=== PATIENT | male | born 1955 | race Caucasian/White ===

== ENCOUNTER 2017-08-08 16:23 | Inpatient (IN) | payer MEDICAID ==
[~2017-08-08] VITALS: Ht 175.3 cm; Wt 97.0 kg
[2017-08-08] MEDS ORDERED: ASPIRIN 81 MG TAB PO STA (16:38)
[2017-08-08] MEDS ORDERED: LISI10TA2 PO (16:58)
[2017-08-08] MEDS ORDERED: METO-319 PO (16:58)
--- NOTE | 2017-08-08 16:59 | ERD ---
ER Documentation Chief Complaint Chief Complaint "not feeling well", weakness/fatigue; CP non-provoked resolved s/p nitro HPI This is a 62-year-old male with a past medical history of hypertension, hyperlipidemia, paroxysmal atrial fibrillation on metoprolol who is presenting with anxiety, lightheadedness, heart palpitations, intermittent left-sided chest pains radiating into the left arm and carotids, nausea with nonbilious nonbloody vomiting that began last night. It is nonexertional. It does not radiate to the back. The patient's symptoms persisted this morning and into the afternoon, so he called an ambulance. The patient was tachycardic with an irregular irregular rhythm. He endorsed chest pain to the paramedics, and he was given 162 mg of aspirin with a nitro spray that resolved his chest pain. The patient still feels mildly nauseated, but he does not feel like he is about to vomit. He also still feels the heart palpitations. Note, the patient reportedly ran out of his metoprolol 2-3 days ago and has not been taking it since then. The patient denies feeling sick recently. The patient denies fever or chills. The patient has had no headache or vision changes. The patient does not endorse back pain. The patient has had no shortness of breath or trouble breathing. He denies a cough. The patient denies abdominal pain or changes to bowel movements or urination. The patient has had no focal deficits. The patient has had no weakness or numbness or tingling to the face or extremities. ROS All systems reviewed and are negative except as per history of present illness. Medications Home Meds Reported Medications Lisinopril* (Lisinopril*) 10 Mg Tablet, 10 MG PO DAILY, #30 TAB 08/08/17 Metoprolol Succinate* (Toprol XL*) 50 Mg Tab.er.24h, 50 MG PO DAILY, #30 TAB 08/08/17 Allergies Allergies: Coded Allergies: No Known Allergy (Unverified , 08/08/17) PMhx/Soc History of Surgery: No Anesthesia Reaction: No Hx Neurological Disorder: No Hx Respiratory Disorders: No Hx Cardiac Disorders: Yes (HTN, A-FIB) Hx Psychiatric Problems: No Hx Miscellaneous Medical Probl: No Hx Alcohol Use: No Hx Substance Use: No Hx Tobacco Use: No Smoking Status: Former smoker FmHx Family History: No coronary disease, No diabetes Physical Exam Vitals Vital Signs Date Time Temp Pulse Resp B/P Pulse Ox O2 Delivery O2 Flow Rate FiO2 08/08/17 18:00 92 20 128/74 99 Nasal Cannula 2.0 08/08/17 17:45 97 20 126/87 99 Nasal Cannula 2.0 08/08/17 17:30 91 20 131/84 99 Nasal Cannula 2.0 08/08/17 17:15 95 20 119/90 99 Nasal Cannula 2.0 08/08/17 17:00 116 20 133/93 99 Nasal Cannula 2.0 08/08/17 16:30 97.9 112 20 144/91 98 08/08/17 16:23 Nasal Cannula 2 Physical Exam Const: No apparent distress, well-developed, well-nourished Head: Atraumatic Eyes: Normal Conjunctiva. Extraocular movements intact. ENT: Normal External Ears, Nose and Mouth. Neck: Full range of motion. No meningismus. Resp: Clear to auscultation bilaterally Cardio: Tachycardia, irregularly irregular rhythm, no murmurs Abd: Soft, non tender, non distended. Normal bowel sounds Skin: No petechiae or rashes Back: No midline or flank tenderness Ext: No cyanosis, or edema Neur: Awake and alert, oriented 4. Cranial nerves intact. No facial droop. Normal strength and sensation in all extremities. Coordination with finger to nose normal. Psych: Normal Mood and Affect Result Diagram: 08/08/17 1659 08/08/17 1659 Results 24 hrs Laboratory Tests Test 08/08/17 16:59 White Blood Count 9.110^3/ul Red Blood Count 4.5810^6/ul Hemoglobin 13.7g/dl Hematocrit 41.1% Mean Corpuscular Volume 89.7fl Mean Corpuscular Hemoglobin 29.9pg Mean Corpuscular Hemoglobin Concent 33.3g/dl Red Cell Distribution Width 13.3% Platelet Count 01615^3/UL Mean Platelet Volume 11.1fl Neutrophils % 76.0% Lymphocytes % 16.2% Monocytes % 6.6% Eosinophils % 0.6% Basophils % 0.3% Nucleated Red Blood Cells % 0.0/100WBC Neutrophils # 6.910^3/ul Lymphocytes # 1.510^3/ul Monocytes # 0.610^3/ul Eosinophils # 0.110^3/ul Basophils # 0.010^3/ul Nucleated Red Blood Cells # 0.010^3/ul Prothrombin Time 12.9Sec Prothrombin Time Ratio 1.0 INR International Normalized Ratio 0.97 Sodium Level 143mmol/L Potassium Level 4.2mmol/L Chloride Level 103mmol/L Carbon Dioxide Level 28mmol/L Anion Gap 16 Blood Urea Nitrogen 20mg/dl Creatinine 1.30mg/dl Glucose Level 131mg/dl Calcium Level 9.2mg/dl Total Bilirubin 0.9mg/dl Direct Bilirubin 0.00mg/dl Indirect Bilirubin 0.9mg/dl Aspartate Amino Transf (AST/SGOT) 20IU/L Alanine Aminotransferase (ALT/SGPT) 18IU/L Alkaline Phosphatase 79IU/L Troponin I < 0.012ng/ml Total Protein 7.4g/dl Albumin 4.3g/dl Globulin 3.10g/dl Albumin/Globulin Ratio 1.38 Current Medications Medications (Trade) Dose Ordered Sig/Mahnaz Route PRN Reason Start Time Stop Time Status Last Admin Dose Admin Aspirin (Aspirin) 162 mg ONCE STAT PO 08/08/17 16:38 08/08/17 16:40 DC 08/08/17 17:02 Metoprolol Tartrate (Lopressor) 5 mg Q5M IV 08/08/17 17:00 08/08/17 17:11 DC 08/08/17 17:03 Procedures/MDM MDM The patient's presentation warrants further investigation. The patient presents with symptoms consistent with atrial fibrillation with rapid ventricular response. The patient also endorses chest pain that will require a chest pain rule out. A cardiac workup will be completed. The patient has no focal deficits, and I do not suspect cerebral ischemia or stroke at this time. The patient does not have symptoms consistent with aortic dissection. He does not have symptoms consistent with a pulmonary embolism. The patient does not endorse an infectious etiology. LABS The patient's blood work was obtained and reviewed. The patient's CBC shows no leukocytosis or left shift. The patient is afebrile and does not appear systemically ill. I do not suspect a systemic infection. The patient has a mild normocytic anemic today, which does not require emergent treatment. The patient's platelet count is unremarkable. The patient's CMP shows no signs of emergent metabolic or electrolyte abnormality. His renal function is decreased, but it is unclear if this is acute or chronic. The patient's troponin is negative. The patient has no previous labs in our system. EKG EKG read by me: Rate/Rhythm: Tachycardic, irregularly irregular rhythm at a rate of 113 Intervals: No P waves, QRS and QTc are unremarkable [place]: Normal Impression: Atrial fibrillation with rapid ventricular response, nonspecific repolarization abnormality in the lateral leads but no signs of acute STEMI IMAGING Chest X-ray 1V Interpreted by me: Soft Tissue: No acute abnormalities. No pneumoperitoneum. Bones: No acute abnormalities Lungs: Vascular markings to the periphery, no signs of pneumothorax. Clear costodiaphragmatic angles, no pleural effusions. No increased vascular markings , no pulmonary edema. Mediastinum/Cardiac Silhouette: Unremarkable cardiomediastinal silhouette TREATMENT/DISPOSITION The patient was given 5 mg of metoprolol IV with improvement to the 80s. I initially chose this over Cardizem, because this is the patient's home medication. The patient is not on any anticoagulation, which is concerning. This may be worked up in the hospital, but is likely related to medication noncompliance. The patient has also had chest pains and a history that could be consistent with cardiac ischemia. I do have moderate suspicion. At this time, I paged the patient's heart score at 4 for age, risk factors, moderate suspicion suspicion and nonspecific repolarization abnormalities in the lateral leads. The patient does not endorse having had a stress test in the past. At this time, I feel that the patient requires admission for further evaluation and management. The patient will be admitted to Panel in accordance with the patient's insurance. The patient was accepted by Dr. Sheikh at 18:19 on July 08, 2017 to telemetry. Departure Diagnosis: Primary Impression: Atrial fibrillation with rapid ventricular response Additional Impression: Chest pain Chest pain type: unspecified Qualified Code: R07.9 - Chest pain, unspecified type Condition: Serious MARITZA JAMISON MD Aug 08, 2017 16:59
[2017-08-08] MEDS: METOPROLOL 5 MG INJ IV SCH ×3 (17:03→17:10)
--- NOTE | 2017-08-08 18:22 | RADRPT ---
PROCEDURE: XR Chest. CLINICAL INDICATION: Chest pain. TECHNIQUE: AP Portable chest. COMPARISON: No pertinent prior examinations were submitted for comparison. FINDINGS: The cardiomediastinal silhouette is normal. The aorta is tortuous. No focal consolidation, pleural e ffusion or pneumothorax is seen. The osseous structures are intact. IMPRESSION: No radiographic evidence of acute cardiopulmonary disease. Physician Mary Date Time Electronically viewed and signed by Genoveva Carney Physician on 08/08/2017 18:21 BEVERLY/
[2017-08-08] MEDS ORDERED: ONDANSETRON 4 MG INJ IV PRN ×2 (18:30→19:30)
[2017-08-08] MEDS ORDERED: ACETAMINOPHEN 325 MG TAB PO PRN ×2 (18:30→19:30)
[2017-08-08] MEDS ORDERED: morphine 2 MG INJ IV PRN (19:30)
[2017-08-08] MEDS ORDERED: NACL 0.9% 3 ML SYG IV SCH (19:30)
[2017-08-08] MEDS ORDERED: DOCUSATE SODIUM 100 MG CAP PO PRN (19:30)
[2017-08-08] MEDS ORDERED: MAGNESIUM HYDROXIDE 30ML CUP PO PRN (19:30)
[2017-08-08] MEDS ORDERED: NITROGLYCERIN (SL) 0.4 MG TAB SL PRN (19:30)
[2017-08-08 20:12] VITALS: PULSE 107
[2017-08-08 20:14] VITALS: Ht 175.3 cm; Wt 97.0 kg
[2017-08-08 20:18] VITALS: BP 144/86; RESP 20
[2017-08-08] MEDS: SOD CHLORIDE 0.9% 1,000 ML IV SCH (21:04)
[2017-08-08] MEDS: FAMOTIDINE 20 MG TAB PO SCH (21:05)
[2017-08-08] MEDS: ENOXAPARIN 100 MG/ML SYG SC SCH (21:06)
[2017-08-09] VITALS (13 sets, daily range): BP systolic 125–154; BP diastolic 74–95; PULSE 66–153; RESP 16–20
--- NOTE | 2017-08-09 05:52 | HP ---
Date/Time of Note Date/Time of Note DATE: 08/09/17 TIME: 05:50 Assessment/Plan VTE Prophylaxis VTE Prophylaxis Intervention: LMWH Lines/Catheters IV [facility] Saline Lock Assessment/Plan Chief Complaint/Hosp Course This is a 62, being admitted to the telemetry floor for: #1 paroxysmal atrial fibrillation: Likely secondary to patient's noncompliance with medications. The current time patient is rate controlled after receiving Lopressor in the ED. Will continue patient's home metoprolol medication. Patient is also will be put on Lovenox twice daily injections for anticoagulant agent. Cardiology will be consulted in the a.m. #2 hypertension: Continue LOURDES inhibitor #3 hyperlipidemia: Patient currently not on any medication. Will check a lipid panel. #4 DVT GI prophylaxis: Lovenox,No GI prophylaxis indicated. Further treatment strategy will be implemented as per the clinical course Problems: HPI/ROS Admit Date/Time Admit Date/Time Aug 08, 2017 at 18:27 Hx of Present Illness cc: anxiety, lightheadedness This is a 62-year-old male with a past medical history of hypertension, hyperlipidemia, paroxysmal atrial fibrillation on metoprolol who is presenting with anxiety, lightheadedness, heart palpitations, intermittent left-sided chest pains radiating into the left arm and carotids, nausea with nonbilious nonbloody vomiting that began last night. It is nonexertional. It does not radiate to the back. The patient's symptoms persisted this morning and into the afternoon, so he called an ambulance. The patient was tachycardic with an irregular irregular rhythm. He endorsed chest pain to the paramedics, and he was given 162 mg of aspirin with a nitro spray that resolved his chest pain. The patient still feels mildly nauseated, but he does not feel like he is about to vomit. He also still feels the heart palpitations. Note, the patient reportedly ran out of his metoprolol 2-3 days ago and has not been taking it since then. The patient denies feeling sick recently. The patient denies fever or chills. The patient has had no headache or vision changes. The patient does not endorse back pain. The patient has had no shortness of breath or trouble breathing. He denies a cough. The patient denies abdominal pain or changes to bowel movements or urination. The patient has had no focal deficits. The patient has had no weakness or numbness or tingling to the face or extremities. allergies NKDA Medications: See BANDAR CASILLAS Const: As per HPI Eyes : No pain discharge or redness or change in visual acuity ENT: No pain, sore throat, congestion, congestion, dysphagia or discharge Respiratory: As per HPI Cardiovascular: As per HPI GI : no change in appetite, abdominal pain, nausea, vomiting, diarrhea, constipation, or change in the color his stool Genitourinary: No dysuria, hematuria, flank pain , discharge or CVA tenderness Musculoskeletal: No joint pain, back pain, neck pain, restricted range of motion in neck or joints Skin: No rash, bruising or hives Neuro: No headache, dizziness, syncope, seizure, focal weakness Endocrine: No polyuria, polydipsia, temperature intolerance Psych: No hallucination, depression, anxiety or suicidal ideation PMH/Family/Social Past Medical History Hypertension, paroxysmal atrial fibrillation, hyperlipidemia Past Surgical History Exploratory laparotomy Family History Significant Family History: no pertinent family hx Social History Alcohol Use: none Smoking Status: Never smoker Drug Use: none Exam/Review of Systems Vital Signs Vitals Vital Signs Date Time Temp Pulse Resp B/P Pulse Ox O2 Delivery O2 Flow Rate FiO2 08/09/17 05:04 97.6 84 20 133/83 98 08/08/17 19:15 Nasal Cannula 2.0 Exam Exam General: Patient is well-developed well-nourished The patient is alert oriented -3 lying comfortably in bed. HEENT: Atraumatic, normocephalic. The pupils are equal, round and reactive. Extraocular motor are intact Neck: Supple with full range of motion. No rigidity or meningismus Chest: Nontender Lungs: Clear to auscultation bilaterally no crackles rales or wheezing Heart: Irregularly irregular rhythm, rate controlled Abdomen: Soft , nontender, nondistended , bowel sounds are present. No guarding no rebound tenderness , No masses or organomegaly. No costovertebral temporal angle mass Extremities: Normal to inspection, no edema no cyanosis Neurologic: Normal mental status, speech normal, cranial nerves II through XII are intact, motor and sensory are intact, no focal weakness Additional Comments EKG read by me: Rate/Rhythm: Tachycardic, irregularly irregular rhythm at a rate of 113 Intervals: No P waves, QRS and QTc are unremarkable [place]: Normal Impression: Atrial fibrillation with rapid ventricular response, nonspecific repolarization abnormality in the lateral leads but no signs of acute STEMI As per ED physician documentation PROCEDURE: XR Chest. CLINICAL INDICATION: Chest pain. TECHNIQUE: AP Portable chest. COMPARISON: No pertinent prior examinations were submitted for comparison. FINDINGS: The cardiomediastinal silhouette is normal. The aorta is tortuous. No focal consolidation, pleural effusion or pneumothorax is seen. The osseous structures are intact. IMPRESSION: No radiographic evidence of acute cardiopulmonary disease. Genoveva Carney Physician Date Time Electronically viewed and signed by Genoveva Carney Physician on 08/08/2017 18: 21 CS/ CC: MARITZA JAMISON MD Labs Result Diagram: 08/08/17 1659 08/08/17 165 Medications Medications Current Medications Lisinopril (Zestril) 10 mg DAILY PO ; Start 08/09/17 at 09:00 Metoprolol Succinate 50 mg 50 mg DAILY PO ; Start 08/09/17 at 09:00 Sodium Chloride (NS) 1,000 ml @ 100 mls/hr Q10H IV Last administered on t 21:04; Admin Dose 100 MLS/HR; Start 08/08/17 at 19:25; Stop 08/09/17 at 19: 24 Ondansetron HCl (Zofran Inj) 4 mg Q6H PRN IV NAUSEA AND/OR VOMITING; Start 08/08/17 at 19:30 Nitroglycerin (Nitroglycerin (Sl Tab) 0.4 Mg) 1 tab Q5M PRN SL CHEST PAIN; Start 08/08/17 at 19:30 Acetaminophen (Tylenol Tab) 650 mg Q6H PRN PO PAIN LEVEL 1-3 OR FEVER; Start 08/08/17 at 19:30 Morphine Sulfate (morphine) 2 mg Q4H PRN IV PAIN LEVEL 7-10; Start 08/08/17 at 19:30 Docusate Sodium (Colace) 100 mg Q12H PRN PO CONSTIPATION; Start 08/08/17 at 19: 30 Magnesium Hydroxide (Milk Of Mag) 30 ml DAILY PRN PO CONSTIPATION; Start at 19:30 Famotidine (Pepcid) 20 mg Q12 PO Last administered on 08/08/17 21:05; Admin Dose 20 MG; Start 08/08/17 at 21:00 Metoprolol Tartrate (Lopressor) 5 mg Q5M PRN IV DESIRED VENTRICULAR RATE; Start 08/08/17 at 19:30 Enoxaparin Sodium (Lovenox) 95 mg Q12 SC Last administered on 08/08/17 21:06; Admin Dose 95 MG; Start 08/08/17 at 21:00 Influenza Virus Vaccine (Fluzone) 0.5 ml ONCE ONCE IM* ; Start 08/10/17 at 09:00 ; Stop 08/10/17 at 09:01 MELISSA TEE Aug 09, 2017 05:51
[2017-08-09] MEDS: METOPROLOL 5 MG INJ IV PRN (06:10)
[2017-08-09] MEDS: SOD CHLORIDE 0.9% 1,000 ML IV SCH ×2 (06:27→15:25)
[2017-08-09] MEDS ORDERED: METOPROLOL (XL) 50 MG TAB PO SCH (09:00)
[2017-08-09] MEDS: FAMOTIDINE 20 MG TAB PO SCH ×2 (09:37→21:34)
[2017-08-09] MEDS: LISINOPRIL 10 MG TAB PO SCH (09:40)
[2017-08-09] MEDS: ENOXAPARIN 100 MG/ML SYG SC SCH ×2 (09:43→21:35)
[2017-08-09] MEDS: AMLODIPINE 10 MG TAB PO SCH (13:17)
[2017-08-09] MEDS: DIGOXIN 0.125 MG TAB PO SCH (13:19)
--- NOTE | 2017-08-09 13:31 | PN ---
Date/Time of Note Date/Time of Note DATE: 08/09/17 TIME: 13:31 Assessment/Plan VTE Prophylaxis VTE Prophylaxis Intervention: LMWH Lines/Catheters IV Catheter Type (from Nrsg): Saline Lock Assessment/Plan Assessment/Plan 1. Paroxysmal atrial fibrillation - most likely secondary to medication noncompliance as he has been out of his Metoprolol for 2 days - Cardiology on board and recommendations appreciated - ECHO ordered to rule out structural disease - Started on digoxin, BB held - Lovenox BID and transition to NOAC 2. HTN - continue on LOURDES i - stable and will continue to monitor 3. hyperTG - advised about improving diet 4. Chest pain, ACS ruled out - EKG showed afib - Serial trops negative 5. Disposition - Continue monitoring in telemetry - ECHO and carotid duplex pending - Once cleared by Cardiology can be d/c home Subjective 24 Hr Interval Summary Free Text/Dictation Patient states he is feeling better since admission and no longer experiencing chest pain or palpitations. States ran out of medications. Also not on anticoagulation and explained importance of starting which he understood. No acute overnight events. Exam/Review of Systems Vital Signs Vitals Vital Signs Date Time Temp Pulse Resp B/P Pulse Ox O2 Delivery O2 Flow Rate FiO2 08/09/17 12:22 98.2 107 20 140/74 97 08/08/17 19:15 Nasal Cannula 2.0 Intake and Output 08/08/17 08/08/17 08/09/17 15:00 23:00 07:00 Intake Total 200 ml Balance 200 ml Exam General: NAD, awake and alert Neck: Supple with full range of motion. No rigidity or meningismus Chest: Nontender Lungs: Clear to auscultation bilaterally no crackles rales or wheezing Heart: Irregularly irregular rhythm, rate controlled Abdomen: Soft , nontender, nondistended , bowel sounds are present. No guarding no rebound tenderness , No masses or organomegaly Extremities: Normal to inspection, no edema no cyanosis Neurologic: Normal mental status, speech normal, cranial nerves II through XII are intact, motor and sensory are intact, no focal weakness Results Result Diagram: 08/09/17 0659 08/09/17 0659 Results 24 hrs Laboratory Tests Test 08/08/17 16:59 08/08/17 17:00 08/08/17 23:07 08/09/17 06:59 White Blood Count 9.1 8.6 Red Blood Count 4.58 L 4.23 L Hemoglobin 13.7 L 12.7 L Hematocrit 41.1 L 38.7 L Mean Corpuscular Volume 89.7 91.5 Mean Corpuscular Hemoglobin 29.9 30.0 Mean Corpuscular Hemoglobin Concent 33.3 32.8 Red Cell Distribution Width 13.3 13.5 Platelet Count 248 238 Mean Platelet Volume 11.1 H 11.3 H Neutrophils % 76.0 66.7 Lymphocytes % 16.2 23.9 Monocytes % 6.6 7.6 Eosinophils % 0.6 1.1 Basophils % 0.3 0.5 Nucleated Red Blood Cells % 0.0 0.0 Neutrophils # 6.9 5.7 Lymphocytes # 1.5 2.1 Monocytes # 0.6 0.7 Eosinophils # 0.1 0.1 Basophils # 0.0 0.0 Nucleated Red Blood Cells # 0.0 0.0 Prothrombin Time 12.9 Prothrombin Time Ratio 1.0 INR International Normalized Ratio 0.97 Sodium Level 143 143 Potassium Level 4.2 4.2 Chloride Level 103 107 Carbon Dioxide Level 28 28 Anion Gap 16 12 Blood Urea Nitrogen 20 20 Creatinine 1.30 H 1.02 Glucose Level 131 99 Calcium Level 9.2 8.8 Total Bilirubin 0.9 Direct Bilirubin 0.00 Indirect Bilirubin 0.9 Aspartate Amino Transf (AST/SGOT) 20 Alanine Aminotransferase (ALT/SGPT) 18 Alkaline Phosphatase 79 Troponin I < 0.012 < 0.012 < 0.012 Total Protein 7.4 Albumin 4.3 Globulin 3.10 Albumin/Globulin Ratio 1.38 Hemoglobin A1c 5.9 Triglycerides Level 233 H Cholesterol Level 168 LDL Cholesterol, Calculated 84 HDL Cholesterol 37 Cholesterol/HDL Ratio 4.5 Thyroid Stimulating Hormone (TSH) 2.310 Creatine Kinase 146 119 Creatine Kinase Index 1.4 1.2 Creatinine Kinase MB (Mass) 2.06 1.38 Magnesium Level 1.9 Medications Medications Current Medications Lisinopril 10 mg 10 mg DAILY PO Last administered on 08/09/17 09:40; Admin Dose 10 MG; Start 08/09/17 at 09:00 Sodium Chloride (NS) 1,000 ml @ 100 mls/hr Q10H IV Last administered on 06:27; Admin Dose 100 MLS/HR; Start 08/08/17 at 19:25; Stop 08/09/17 at 19: 24 Ondansetron HCl (Zofran Inj) 4 mg Q6H PRN IV NAUSEA AND/OR VOMITING; Start 08/08/17 at 19:30 Nitroglycerin (Nitroglycerin (Sl Tab) 0.4 Mg) 1 tab Q5M PRN SL CHEST PAIN; Start 08/08/17 at 19:30 Acetaminophen (Tylenol Tab) 650 mg Q6H PRN PO PAIN LEVEL 1-3 OR FEVER; Start 08/08/17 at 19:30 Morphine Sulfate (morphine) 2 mg Q4H PRN IV PAIN LEVEL 7-10; Start 08/08/17 at 19:30 Docusate Sodium (Colace) 100 mg Q12H PRN PO CONSTIPATION; Start 08/08/17 at 19: 30 Magnesium Hydroxide (Milk Of Mag) 30 ml DAILY PRN PO CONSTIPATION; Start at 19:30 Famotidine (Pepcid) 20 mg Q12 PO Last administered on 08/09/17 09:37; Admin Dose 20 MG; Start 08/08/17 at 21:00 Metoprolol Tartrate (Lopressor) 5 mg Q5M PRN IV DESIRED VENTRICULAR RATE Last administered on 08/09/17 06:10; Admin Dose 5 MG; Start 08/08/17 at 19:30 Enoxaparin Sodium (Lovenox) 95 mg Q12 SC Last administered on 08/09/17 09:43; Admin Dose 95 MG; Start 08/08/17 at 21:00 Influenza Virus Vaccine (Fluzone) 0.5 ml ONCE ONCE IM* ; Start 08/10/17 at 09:00 ; Stop 08/10/17 at 09:01 Digoxin (Digoxin) 0.125 mg DAILY@13 PO Last administered on 08/09/17 13:19; Admin Dose 0.125 MG; Start 08/09/17 at 13:00 Amlodipine Besylate (Norvasc) 10 mg DAILY PO Last administered on 08/09/17 13: 17; Admin Dose 10 MG; Start 08/09/17 at 11:30 PRISCILLA VILLEGAS MD Aug 09, 2017 13:31
--- NOTE | 2017-08-09 14:22 | RADRPT ---
Echocardiogram Report Patient Name: LILY JAY Gender: Male Date: 1955 Study Date: 09-Aug-2017 Anatomy Professor: LEELEE Location: [id number] Ref. Physician: PRISCILLA VILLEGAS Quality: Technically Difficult Study Procedures: Transthoracic echocardiogram with complete 2D, M-Mode, and doppler examination. Indications: Atrial Fibrillation. Chest Pain. 2D/M Mode Doppler Measurement Value Normal Ranges Measurement Value Normal Ranges AoR Diam MM 3.4 cm NONA Vmax 2.6 cm2 ACS MM 2.0 cm NONA VTI 2.6 cm2 LA/Ao MM 1.0 AV Peak [place] 1.3 m/sec LA Dimen MM 4.2 cm AV Peak PG 6.6 mmHg LVIDs 2D 4.3 2.1 - 4.1 cm LVOT Peak [place] 1.1 m/sec LVPWd 2D 1.1 0.6 - 1.1 cm LVOT Peak PG 4.4 mmHg IVSd 2D 1.1 0.6 - 1.1 cm MV E Peak [place] 1.0 m/sec EDV 2D 137.8 cm3 MV A Peak [place] 0.3 m/sec ESV 2D 79.8 cm3 MV E/A 3.3 EF 2D 40.0 50.0 - 65.0 % MV Decel Time 135 msec LVOT Diam 2.0 cm MV Decel [place] 8 MV E/A 3.3 TR Peak [place] 2.5 m/sec TR Peak PG 24.8 mmHg RVSP 28.0 mmHg RA Pressure 3.0 Findings Left Ventricle: Normal left ventricular cavity size. Normal left ventricular wall thickness. Moderate left ventricular systolic dysfunction. Ejection fraction is visually estimated at 40 %. Abnormal Diastolic Function. Right Ventricle: Normal right ventricular size. Normal right ventricular systolic function. Left Atrium: There is mild enlargement of left atrium. Right Atrium: The right atrium is normal in size. Mitral Valve: Normal appearance of the mitral valve. Mild mitral annular calcification. Trace mitral regurgitation. Aortic Valve: Normal appearance of the aortic valve. No significant aortic stenosis with trivial insufficiency. Tricuspid Valve: Normal appearance of the tricuspid valve. Normal right ventricular systolic pressure. Estimated peak PA systolic pressure 28 mmHg. There is mild tricuspid regurgitation. Pulmonic Valve: Pulmonic valve not well visualized. Pericardium: Normal pericardium with no significant pericardial effusion. Aorta: Normal aortic root. IVC: Normal size and normal respiratory collapse consistent with normal right atrial pressure. Conclusions 1.Normal left ventricular cavity size. Normal left ventricular wall thickness. Moderate left ventricular systolic dysfunction. Ejection fraction is visually estimated at 40 %. Abnormal Diastolic Function. 2.Normal right ventricular size. Normal right ventricular systolic function. 3.Normal appearance of the mitral valve. Mild mitral annular calcification. Trace mitral regurgitation. 4.Normal appearance of the aortic valve. No significant aortic stenosis with trivial insufficiency. 5.Normal appearance of the tricuspid valve. Normal right ventricular systolic pressure. Estimated peak PA systolic pressure 28 mmHg. There is mild tricuspid regurgitation. 6.Normal pericardium with no significant pericardial effusion. Electronically Signed By: Humphrey Odonnell 09-Aug-2017 14:21:23 -0800 Patient Name: LILY JAY Study Date: 09-Aug-2017 [id number]
--- NOTE | 2017-08-09 14:22 | RADRPT ---
Echocardiogram Report Patient Name: LILY JAY Gender: Male Date: 1955 Study Date: 09-Aug-2017 Analyst Market Intelligence: LEELEE Location: 5539 Ref. Physician: PRISCILLA VILLEGAS Quality: Technically Difficult Study Procedures: Transthoracic echocardiogram with complete 2D, M-Mode, and doppler examination. Indications: Atrial Fibrillation. Chest Pain. 2D/M Mode Doppler Measurement Value Normal Ranges Measurement Value Normal Ranges AoR Diam MM 3.4 cm NONA Vmax 2.6 cm2 ACS MM 2.0 cm NONA VTI 2.6 cm2 LA/Ao MM 1.0 AV Peak [place] 1.3 m/sec LA Dimen MM 4.2 cm AV Peak PG 6.6 mmHg LVIDs 2D 4.3 2.1 - 4.1 cm LVOT Peak [place] 1.1 m/sec LVPWd 2D 1.1 0.6 - 1.1 cm LVOT Peak PG 4.4 mmHg IVSd 2D 1.1 0.6 - 1.1 cm MV E Peak [place] 1.0 m/sec EDV 2D 137.8 cm3 MV A Peak [place] 0.3 m/sec ESV 2D 79.8 cm3 MV E/A 3.3 EF 2D 40.0 50.0 - 65.0 % MV Decel Time 135 msec LVOT Diam 2.0 cm MV Decel [place] 8 MV E/A 3.3 TR Peak [place] 2.5 m/sec TR Peak PG 24.8 mmHg RVSP 28.0 mmHg RA Pressure 3.0 Findings Left Ventricle: Normal left ventricular cavity size. Normal left ventricular wall thickness. Moderate left ventricular systolic dysfunction. Ejection fraction is visually estimated at 40 %. Abnormal Diastolic Function. Right Ventricle: Normal right ventricular size. Normal right ventricular systolic function. Left Atrium: There is mild enlargement of left atrium. Right Atrium: The right atrium is normal in size. Mitral Valve: Normal appearance of the mitral valve. Mild mitral annular calcification. Trace mitral regurgitation. Aortic Valve: Normal appearance of the aortic valve. No significant aortic stenosis with trivial insufficiency. Tricuspid Valve: Normal appearance of the tricuspid valve. Normal right ventricular systolic pressure. Estimated peak PA systolic pressure 28 mmHg. There is mild tricuspid regurgitation. Pulmonic Valve: Pulmonic valve not well visualized. Pericardium: Normal pericardium with no significant pericardial effusion. Aorta: Normal aortic root. IVC: Normal size and normal respiratory collapse consistent with normal right atrial pressure. Conclusions 1.Normal left ventricular cavity size. Normal left ventricular wall thickness. Moderate left ventricular systolic dysfunction. Ejection fraction is visually estimated at 40 %. Abnormal Diastolic Function. 2.Normal right ventricular size. Normal right ventricular systolic function. 3.Normal appearance of the mitral valve. Mild mitral annular calcification. Trace mitral regurgitation. 4.Normal appearance of the aortic valve. No significant aortic stenosis with trivial insufficiency. 5.Normal appearance of the tricuspid valve. Normal right ventricular systolic pressure. Estimated peak PA systolic pressure 28 mmHg. There is mild tricuspid regurgitation. 6.Normal pericardium with no significant pericardial effusion. Electronically Signed By: Humphrey Odonnell 09-Aug-2017 14:21:23 -0800 Patient Name: LILY JAY Study Date: 09-Aug-2017 [id number]
--- NOTE | 2017-08-09 14:27 | CONS ---
DATE OF ADMISSION: 08/08/2017 DATE OF CONSULTATION: 08/09/2017 REASON FOR CONSULTATION: Dizziness. HISTORY OF PRESENT ILLNESS: The patient is a 62-year-old gentleman who complains of abdominal disco mfort associated with nausea and vomiting. He also complains of palpitations with dizziness. Denie s syncope. He also complains of intermittent and substernal chest pain radiating to the left arm. He does complain of headache with blurry vision. Denies fever, chills, or rigors. There is no prio r history of coronary artery disease or myocardial infarction. PAST MEDICAL HISTORY: Significant for: 1. Atrial fibrillation. 2. Dyslipidemia. 3. Hypertension. 4. Diabetes mellitus. SOCIAL HISTORY: No smoking, alcohol or recreational drug. ALLERGIES: NONE. CURRENT MEDICATIONS: Include: 1. Lisinopril. 2. Metoprolol. 3. Pepcid. 4. Lovenox. REVIEW OF SYSTEMS: Is unremarkable except that mentioned in the HPI. PHYSICAL EXAMINATION: VITAL SIGNS: Temperature is 98.1, heart rate of 60, blood pressure 154/95 mmHg, breathing at 20, sa turating 97%. GENERAL: Patient awake, alert, in no apparent distress. NECK: No JVD or carotid bruit. CARDIOVASCULAR: Irregularly irregular rhythm. No murmur, rub or gallop. LUNGS: Clear to auscultation. ABDOMEN: Soft. Bowel sounds are present. There is no organomegaly. EXTREMITIES: No pedal edema. Review of 12-lead EKG shows atrial fibrillation with rapid ventricular rate of 130 beats per minute, with normal QRS and normal QT intervals with nonspecific ST-T wave changes. Chest x-ray shows no congestion or infiltrates. LABORATORY DATA: WBC is 8.6, hemoglobin 4.8, hematocrit 12.7, platelets 238. Sodium 143, potassium 4.2, chloride 107, CO2 of 28, BUN 20, creatinine 1.02, magnesium 1.9. Triglycerides 233. Total ch olesterol 168, LDL 84, HDL 37. TSH 2.3. ASSESSMENT AND PLAN: A 62-year-old gentleman with: 1. Atypical chest pain. 2. Dizziness. 3. Atrial fibrillation with rapid ventricular rate. 4. Hypertension. 5. Dyslipidemia. 6. Diabetes mellitus. Review of 12-lead EKG shows atrial fibrillation with rapid ventricular rate, and clinically not in h eart failure. He has been ruled out for acute coronary syndrome with serial negative troponins. RECOMMENDATIONS: 1. Orthostatic x4. 2. Hold beta blockers. 3. Started on Digoxin. 4. Bilateral carotid Duplex. 5. Echocardiogram to assess for structural heart disease and to rule out for pulmonary hypertension and pericardial disease. 6. Encourage oral intake. 7. Continue GI and DVT prophylaxis. Dictated By: ANNIKA LOGAN MD SR/DALTON Conf#: [id number] DID#: [id number]
--- NOTE | 2017-08-09 16:13 | RADRPT ---
PROCEDURE: US carotid arteries. CLINICAL INDICATION: Dizziness. TECHNIQUE: Multiple sonographic images of the carotid arteries and vertebral arteries were obtaine d utilizing may scale, duplex, and color-flow imaging. The images were reviewed on a PACS workstati on. COMPARISON: No prior studies are available for comparison. FINDINGS: Evaluation of the right carotid bifurcation region reveals mild atherosclerotic disease. Evaluation of the left carotid bifurcation region reveals mild atherosclerotic disease. There is antegrade flow within the vertebral arteries bilaterally. RIGHT CAROTID MEASUREMENTS: Common Carotid Lbiotm46 (cm/sec) Internal Carotid Artery 63 (cm/sec) External Carotid Artery 54 (cm/sec) Vertebral Artery 47 (cm/sec) Internal Carotid/Common Carotid1.0 LEFT CAROTID MEASUREMENTS: Common Carotid Tavaxs41 (cm/sec) Internal Carotid Artery 64 (cm/sec) External Carotid Artery 59 (cm/sec) Vertebral Artery 45 (cm/sec) Internal Carotid/Common Carotid1.2 Validated velocity measurements with angiographic measurements. Velocity criteria are extrapolated f rom diameter data as defined by the Society of Radiologists in Ultrasound Consensus Conference. Radi ology 2003; 229;340-346. This study does indirectly reference the measurement of the distal ICA ally meter as the denominator for stenosis measurement. IMPRESSION: 1. Less than 50% stenosis bilaterally in the internal carotid arteries. 2. Normal antegrade flow in the vertebral arteries bilaterally. RPTAT: QQ SRU Consensus Conference Criteria for the Diagnosis of Carotid Artery Stenosis* Degree of Stenosis, % ICA PSV, cm/sec Plaque Estimate, % ICA/CCA PSV Ratio Normal <125 None <2.0 <50 <125 <50 <2.0 50 69 125-230 >50 2.0-4.0 >70 but less than near occlusion >230 >50 <4.0 Near occlusion High, low, or undetectable Visible Variable Total occlusion Undetectable Visible, no detectable lumen Not applicable *Cartoid artery stenosis: may-scale and Doppler US diagnosis. Society of Radiologists in Ultrasound Consensus Conference. Radiology 2003; 229: 340-346 .Russ Kenny MD, Date Time Electronically viewed and signed by .Russ Kenny MD, on 08/09/2017 16:13 .R/
[2017-08-10] VITALS (12 sets, daily range): BP systolic 120–169; BP diastolic 73–94; PULSE 74–151; RESP 16–20
[2017-08-10] MEDS: METOPROLOL 5 MG INJ IV PRN (01:03)
[2017-08-10] MEDS: ENOXAPARIN 100 MG/ML SYG SC SCH ×2 (08:31→21:00)
[2017-08-10] MEDS: LISINOPRIL 10 MG TAB PO SCH ×2 (09:00→13:56)
[2017-08-10] MEDS: FAMOTIDINE 20 MG TAB PO SCH ×3 (09:00→21:00)
[2017-08-10] MEDS ORDERED: INFLUENZA VIRUS VACCINE 0.5 ML (DISPENSING) IM* ONE (09:00)
[2017-08-10] MEDS: AMLODIPINE 10 MG TAB PO SCH ×2 (09:00→13:56)
[2017-08-10] MEDS ORDERED: REGADENOSON 0.4 MG/5 ML SYG ONE (11:35)
--- NOTE | 2017-08-10 12:09 | CONS ---
Date/Time of Note Date/Time of Note DATE: 08/10/17 TIME: 12:05 Assessment/Plan Assessment/Plan Chief Complaint/Hosp Course ASSESSMENT AND PLAN: A 62-year-old gentleman with: 1. Chest pain-negative trop x 3/EF 40% by echo read this admit 2. Dizziness. 3. Atrial fibrillation with rapid ventricular rate. 4. Hypertension. 5. Dyslipidemia. 6. Diabetes mellitus. Recc: -Tele -Continue digoxin -Continue zestril/norvasc -Start BB -Continue lovenox -Follow volume status cloaekly -Lexiscan stress test today Problems: Consultation Date/Type/Reason Admit Date/Time Aug 08, 2017 at 18:27 Initial Consult Date 08/09/2017 Type of Consultation: cardiology Reason for Consultation Chest pain/AF Referring Provider: PRISCILLA VILLGEAS MD Exam/Review of Systems Vital Signs Vitals Vital Signs Date Time Temp Pulse Resp B/P Pulse Ox O2 Delivery O2 Flow Rate FiO2 08/10/17 08:07 83 08/10/17 07:44 97.8 19 143/86 97 08/08/17 19:15 Nasal Cannula 2.0 Intake and Output 08/09/17 08/09/17 08/10/17 15:00 23:00 07:00 Intake Total 1760 ml 500 ml Balance 1760 ml 500 ml Exam Review of Systems: CONSTITUTIONAL: No fevers, chills. PULMONARY: No sob CARDIOVASCULAR: No chest pain/palpitations GASTROINTESTINAL: No nausea/vomiting. GENITOURINARY: No hematuria/dysuria. MUSCULOSKELETAL: No myagias/arthalgias. PSYCHIATRIC: The patient denies depression. NEUROLOGIC: No weakness Constitutional: alert Psych: no complaints Head: normocephalic ENMT: mucosa pink and moist Neck: jvd (9 cm water), supple Respiratory: clear to auscultation Cardiovascular: irregular rhythm Gastrointestinal: non-tender, soft Musculoskeletal: muscle tone (normal) Extremities: edema (none) Neurological: other (No focal deficits) Results Result Diagram: 08/09/17 0659 08/09/17 0659 Medications Medications Current Medications Lisinopril (Zestril) 10 mg DAILY PO Last administered on 08/09/17t 09:40; Admin Dose 10 MG; Start 08/09/17 at 09:00 Ondansetron HCl (Zofran Inj) 4 mg Q6H PRN IV NAUSEA AND/OR VOMITING; Start 08/08/17 at 19:30 Nitroglycerin (Nitroglycerin (Sl Tab) 0.4 Mg) 1 tab Q5M PRN SL CHEST PAIN; Start 08/08/17 at 19:30 Acetaminophen (Tylenol Tab) 650 mg Q6H PRN PO PAIN LEVEL 1-3 OR FEVER; Start 08/08/17 at 19:30 Morphine Sulfate (morphine) 2 mg Q4H PRN IV PAIN LEVEL 7-10; Start 08/08/17 at 19:30 Docusate Sodium (Colace) 100 mg Q12H PRN PO CONSTIPATION; Start 08/08/17 at 19: 30 Magnesium Hydroxide (Milk Of Mag) 30 ml DAILY PRN PO CONSTIPATION; Start at 19:30 Famotidine (Pepcid) 20 mg Q12 PO Last administered on 08/09/17 21:34; Admin Dose 20 MG; Start 08/08/17 at 21:00 Metoprolol Tartrate (Lopressor) 5 mg Q5M PRN IV DESIRED VENTRICULAR RATE Last administered on 08/10/17 01:03; Admin Dose 5 MG; Start 08/08/17 at 19:30 Enoxaparin Sodium (Lovenox) 95 mg Q12 SC Last administered on 08/10/17 08:31; Admin Dose 95 MG; Start 08/08/17 at 21:00 Digoxin (Digoxin) 0.125 mg DAILY@13 PO Last administered on 08/09/17 13:19; Admin Dose 0.125 MG; Start 08/09/17 at 13:00 Amlodipine Besylate (Norvasc) 10 mg DAILY PO Last administered on 08/09/17 13: 17; Admin Dose 10 MG; Start 08/09/17 at 11:30 JOSE MIGUEL MARIE 6, 2017 12:09
--- NOTE | 2017-08-10 13:16 | CONS ---
DATE OF ADMISSION: 08/08/2017 DATE OF CONSULTATION: 08/10/2017 LEXISCAN CARDIOLITE STRESS TEST REASON FOR CONSULTATION: Chest pain, assess for ischemia. HISTORY OF PRESENT ILLNESS: Baseline vital signs electrocardiogram: Pulse 105 in atrial fibrillati on, blood pressure was . Electrocardiogram reveals atrial fibrillation, rate of 105, normal ax is, normal intervals, with nonspecific ST-T abnormalities diffusely. PROCEDURE: The patient was standard Lexiscan infusion protocol over 10 seconds followed by radiolab eled tracer. The patient's test was stopped due to completion of protocol. Maximal achieved blood pressure during the test 157/71. Maximal heart rate during the test 135. ECG FINDINGS: The patient did not develop any new Lexiscan-induced ST or T-wave changes from baseli ne abnormalities. No documented PVCs. SYMPTOMS: The patient had no complaints of chest pain or shortness of breath during stress testing. IMPRESSION: 1. No Lexiscan-induced ST or T-wave changes from baseline abnormalities or diagnostic cardiac ische iveth. 2. No complaints of chest pain or shortness of breath during stress testing. 3. Occasional premature ventricular contractions during stress testing versus aberrantly conducted supraventricular beats. 4. Report of nuclear images to follow in separate dictation. Dictated By: JOSE MIGUEL MONTENEGRO/DALTON Conf#: [id number] DID#: [id number]
[2017-08-10] MEDS: DIGOXIN 0.125 MG TAB PO SCH (13:55)
--- NOTE | 2017-08-10 14:29 | RADRPT ---
PROCEDURE: Lexiscan myocardial perfusion study CLINICAL INDICATION: 62 -year-old patient complaining of chest pain. TECHNIQUE: Lexiscan 0.4 mg intravenously separate acquisition gated myocardial perfusion SPECT usi ng Tc 99m Myoview approximately 30.0 mCi intravenously at stress and Tc-99m Myoview, approximately 1 0.0 mCi intravenously at rest was performed using the rest/stress sequence. Poststress Myoview SPEC T images were obtained in the supine position. COMPARISON: No prior studies. FINDINGS: Perfusion images reveal no evidence of perfusion defects. Lexiscan post stress gated SPECT images demonstrate mild hypokinesis of the left ventricle. IMPRESSION: 1. No evidence of perfusion defects. 2. Mild hypokinesis of the left ventricle. 3. The left ventricle ejection fraction at stress is 39%. RPTAT: HH .Mindy Saenz MD, Date Time Electronically viewed and signed by .Mindy Saenz MD, on 08/10/2017 14:28 .L/
--- NOTE | 2017-08-10 14:29 | RADRPT ---
PROCEDURE: Lexiscan myocardial perfusion study CLINICAL INDICATION: 62 -year-old patient complaining of chest pain. TECHNIQUE: Lexiscan 0.4 mg intravenously separate acquisition gated myocardial perfusion SPECT usi ng Tc 99m Myoview approximately 30.0 mCi intravenously at stress and Tc-99m Myoview, approximately 1 0.0 mCi intravenously at rest was performed using the rest/stress sequence. Poststress Myoview SPEC T images were obtained in the supine position. COMPARISON: No prior studies. FINDINGS: Perfusion images reveal no evidence of perfusion defects. Lexiscan post stress gated SPECT images demonstrate mild hypokinesis of the left ventricle. IMPRESSION: 1. No evidence of perfusion defects. 2. Mild hypokinesis of the left ventricle. 3. The left ventricle ejection fraction at stress is 39%. RPTAT: HH .Midny Saenz MD, Date Time Electronically viewed and signed by .Mindy Saenz MD, on 08/10/2017 14:28 .L/
--- NOTE | 2017-08-10 15:48 | PN ---
Date/Time of Note Date/Time of Note DATE: 08/10/17 TIME: 15:44 Assessment/Plan VTE Prophylaxis VTE Prophylaxis Intervention: SCD's Lines/Catheters IV Catheter Type (from Nrsg): Saline Lock Assessment/Plan Chief Complaint/Hosp Course 1. Paroxysmal atrial fibrillation - most likely secondary to medication noncompliance as he has been out of his Metoprolol for 2 days - Cardiology on board and recommendations appreciated - ECHO ordered to rule out structural disease - Started on digoxin, BB restarted - Lovenox BID and transition to NOAC 2. HTN - continue on LOURDES i - stable and will continue to monitor 3. hyperTG - advised about improving diet 4. Chest pain, ACS ruled out - EKG showed afib - Serial trops negative 5. Disposition - Continue monitoring in telemetry -lexiscan neg - patient still episodes of RVR, started metoprolol, DC when episodes are controlled. Problems: Subjective 24 Hr Interval Summary Free Text/Dictation no acute complaints Exam/Review of Systems Vital Signs Vitals Vital Signs Date Time Temp Pulse Resp B/P Pulse Ox O2 Delivery O2 Flow Rate FiO2 08/10/17 15:29 98.3 60 20 138/88 100 08/08/17 19:15 Nasal Cannula 2.0 Intake and Output 08/09/17 08/09/17 08/10/17 15:00 23:00 07:00 Intake Total 1760 ml 500 ml Balance 1760 ml 500 ml Exam General: NAD, awake and alert Neck: Supple with full range of motion. No rigidity or meningismus Chest: Nontender Lungs: Clear to auscultation bilaterally no crackles rales or wheezing Heart: Irregularly irregular rhythm, rate controlled Abdomen: Soft , nontender, nondistended , bowel sounds are present. No guarding no rebound tenderness , No masses or organomegaly Extremities: Normal to inspection, no edema no cyanosis Neurologic: Normal mental status, speech normal, cranial nerves II through XII are intact, motor and sensory are intact, no focal weakness Results Result Diagram: 08/09/17 0659 08/09/17 0659 Medications Medications Current Medications Lisinopril (Zestril) 10 mg DAILY PO Last administered on 08/10/17t 13:56; Admin Dose 10 MG; Start 08/09/17 at 09:00 Ondansetron HCl (Zofran Inj) 4 mg Q6H PRN IV NAUSEA AND/OR VOMITING; Start 08/08/17 at 19:30 Nitroglycerin (Nitroglycerin (Sl Tab) 0.4 Mg) 1 tab Q5M PRN SL CHEST PAIN; Start 08/08/17 at 19:30 Acetaminophen (Tylenol Tab) 650 mg Q6H PRN PO PAIN LEVEL 1-3 OR FEVER; Start 08/08/17 at 19:30 Morphine Sulfate (morphine) 2 mg Q4H PRN IV PAIN LEVEL 7-10; Start 08/08/17 at 19:30 Docusate Sodium (Colace) 100 mg Q12H PRN PO CONSTIPATION; Start 08/08/17 at 19: 30 Magnesium Hydroxide (Milk Of Mag) 30 ml DAILY PRN PO CONSTIPATION; Start at 19:30 Famotidine (Pepcid) 20 mg Q12 PO Last administered on 08/10/17 13:57; Admin Dose 20 MG; Start 08/08/17 at 21:00 Metoprolol Tartrate (Lopressor) 5 mg Q5M PRN IV DESIRED VENTRICULAR RATE Last administered on 08/10/17 01:03; Admin Dose 5 MG; Start 08/08/17 at 19:30 Enoxaparin Sodium (Lovenox) 95 mg Q12 SC Last administered on 08/10/17 08:31; Admin Dose 95 MG; Start 08/08/17 at 21:00 Digoxin (Digoxin) 0.125 mg DAILY@13 PO Last administered on 08/10/17 13:55; Admin Dose 0.125 MG; Start 08/09/17 at 13:00 Amlodipine Besylate (Norvasc) 10 mg DAILY PO Last administered on 08/10/17 13: 56; Admin Dose 10 MG; Start 08/09/17 at 11:30 Metoprolol Tartrate (Lopressor) 25 mg BID PO ; Start 08/10/17 at 21:00 VIANCA LEWIS Aug 10, 2017 15:48
[2017-08-10] MEDS: METOPROLOL 25 MG TAB PO SCH (21:00)
[2017-08-11] VITALS (12 sets, daily range): BP systolic 130–160; BP diastolic 69–78; PULSE 62–70; RESP 16
[2017-08-11] MEDS: METOPROLOL 25 MG TAB PO SCH ×2 (09:12→21:43)
[2017-08-11] MEDS: AMLODIPINE 10 MG TAB PO SCH (09:12)
[2017-08-11] MEDS: LISINOPRIL 10 MG TAB PO SCH (09:12)
[2017-08-11] MEDS: FAMOTIDINE 20 MG TAB PO SCH ×2 (09:12→21:43)
[2017-08-11] MEDS: ENOXAPARIN 100 MG/ML SYG SC SCH ×2 (09:16→21:47)
--- NOTE | 2017-08-11 11:14 | CONS ---
Date/Time of Note Date/Time of Note DATE: 08/11/17 TIME: 11:12 Assessment/Plan Assessment/Plan Additional Assessment/Plan 1. Chest pain-negative trop x 3/EF 40% by echo read this admit - stress test, EF39% - no ischemia noted - med Rx advised. 2. Dizziness- better now. 3. Atrial fibrillation with rapid ventricular rate - now converted to sinus. Will rx medicxally. 4. Hypertension- well Rx, con't Med rx. 5. Dyslipidemia- on meds. 6. Diabetes mellitus- on meds, keep euglycemic. Consultation Date/Type/Reason Admit Date/Time Aug 08, 2017 at 18:27 Initial Consult Date Type of Consultation: cardiology Referring Provider: PRISCILLA VILLEGAS MD 24 HR Interval Summary Free Text/Dictation Now in sinus, converted last night - CMY non-ischemic by stress test - might be tachy induced. ROS: No fever, no chills, no nausea, no vomiting, no diarrhea/constipation No recent weight changes No chest pain, no PND, no orthopnea No dizziness, blurred vision No thirst, no heat or cold intolerance Exam/Review of Systems Vital Signs Vitals Vital Signs Date Time Temp Pulse Resp B/P Pulse Ox O2 Delivery O2 Flow Rate FiO2 08/11/17 08:12 66 08/11/17 07:26 97.8 16 133/75 99 08/11/17 05:43 Room Air 08/08/17 19:15 2.0 Intake and Output 08/10/17 08/10/17 08/11/17 15:00 23:00 07:00 Intake Total 400 ml Balance 400 ml Exam General: WN/WD/NAD, AOx 3 HEENT: Unicetric/atraumatic/EOMI (follows commands) NECK: JVD elevated, no thyromegaly Lymph: no lymphadenopathy HEART: regular with no S3, II/ systolic murmur at apex LUNGS: Coarse sounds ABD: soft, NT, ND, +BS : Intact Neuro: non focal SKIN: chronic changes EXT: trace edema Results Result Diagram: 08/11/17 0637 08/11/17 0637 Results 24 hrs Laboratory Tests Test 08/11/17 06:37 White Blood Count 7.5 Red Blood Count 4.10 L Hemoglobin 12.3 L Hematocrit 37.1 L Mean Corpuscular Volume 90.5 Mean Corpuscular Hemoglobin 30.0 Mean Corpuscular Hemoglobin Concent 33.2 Red Cell Distribution Width 13.2 Platelet Count 219 Mean Platelet Volume 11.4 H Neutrophils % 70.4 Lymphocytes % 17.8 Monocytes % 9.3 Eosinophils % 1.7 Basophils % 0.5 Nucleated Red Blood Cells % 0.0 Neutrophils # 5.3 Lymphocytes # 1.3 Monocytes # 0.7 Eosinophils # 0.1 Basophils # 0.0 Nucleated Red Blood Cells # 0.0 Sodium Level 142 Potassium Level 3.6 Chloride Level 105 Carbon Dioxide Level 30 Anion Gap 11 Blood Urea Nitrogen 17 Creatinine 0.93 Glucose Level 89 Calcium Level 8.6 Phosphorus Level 4.4 Magnesium Level 1.8 Medications Medications Current Medications Lisinopril (Zestril) 10 mg DAILY PO Last administered on 08/11/17 09:12; Admin Dose 10 MG; Start 08/09/17 at 09:00 Ondansetron HCl (Zofran Inj) 4 mg Q6H PRN IV NAUSEA AND/OR VOMITING; Start 08/08/17 at 19:30 Nitroglycerin (Nitroglycerin (Sl Tab) 0.4 Mg) 1 tab Q5M PRN SL CHEST PAIN; Start 08/08/17 at 19:30 Acetaminophen (Tylenol Tab) 650 mg Q6H PRN PO PAIN LEVEL 1-3 OR FEVER; Start 08/08/17 at 19:30 Morphine Sulfate (morphine) 2 mg Q4H PRN IV PAIN LEVEL 7-10; Start 08/08/17 at 19:30 Docusate Sodium (Colace) 100 mg Q12H PRN PO CONSTIPATION; Start 08/08/17 at 19: 30 Magnesium Hydroxide (Milk Of Mag) 30 ml DAILY PRN PO CONSTIPATION; Start at 19:30 Famotidine (Pepcid) 20 mg Q12 PO Last administered on 08/11/17 09:12; Admin Dose 20 MG; Start 08/08/17 at 21:00 Metoprolol Tartrate (Lopressor) 5 mg Q5M PRN IV DESIRED VENTRICULAR RATE Last administered on 08/10/17 01:03; Admin Dose 5 MG; Start 08/08/17 at 19:30 Digoxin (Digoxin) 0.125 mg DAILY@13 PO Last administered on 08/10/17 13:55; Admin Dose 0.125 MG; Start 08/09/17 at 13:00 Amlodipine Besylate (Norvasc) 10 mg DAILY PO Last administered on 08/11/17 09: 12; Admin Dose 10 MG; Start 08/09/17 at 11:30 Metoprolol Tartrate (Lopressor) 25 mg BID PO Last administered on 08/11/17 09: 12; Admin Dose 25 MG; Start 08/10/17 at 21:00 Apixaban (Eliquis) 5 mg BID PO ; Start 08/11/17 at 21:00 Enoxaparin Sodium (Lovenox) 95 mg Q12 SC ; Start 08/11/17 at 21:00; Status UNV NIKO HELLER MD Aug 11, 2017 11:14
[2017-08-11] MEDS: DIGOXIN 0.125 MG TAB PO SCH (13:30)
[2017-08-11] MEDS: KETOCONAZOLE 2% 15 GM CR TOP SCH ×2 (13:30→21:43)
--- NOTE | 2017-08-11 15:01 | PN ---
Date/Time of Note Date/Time of Note DATE: 08/11/17 TIME: 15:00 Assessment/Plan VTE Prophylaxis VTE Prophylaxis Intervention: LMWH Lines/Catheters IV Catheter Type (from Nrsg): Saline Lock Assessment/Plan Chief Complaint/Hosp Course 1. Paroxysmal atrial fibrillation - most likely secondary to medication noncompliance as he has been out of his Metoprolol for 2 days - Cardiology on board and recommendations appreciated - ECHO ordered to rule out structural disease - Started on digoxin, BB restarted - Lovenox BID and transition to NOAC vs warfarin 2. HTN - continue on LOURDES i - stable and will continue to monitor 3. hyperTG - advised about improving diet 4. Chest pain, ACS ruled out - EKG showed afib - Serial trops negative 5. Disposition - Continue monitoring in telemetry -lexiscan neg - patient converted to NSR -needs approval on noac, eliquis rejected, xarelto pending, if no NOAC, then warfarin bridge. Problems: Subjective 24 Hr Interval Summary Free Text/Dictation no acute issues Exam/Review of Systems Vital Signs Vitals Vital Signs Date Time Temp Pulse Resp B/P Pulse Ox O2 Delivery O2 Flow Rate FiO2 08/11/17 12:15 65 08/11/17 12:11 98.1 16 135/74 96 08/11/17 05:43 Room Air 08/08/17 19:15 2.0 Intake and Output 08/10/17 08/10/17 08/11/17 14:59 22:59 06:59 Intake Total 400 ml Balance 400 ml Exam General: NAD, awake and alert Neck: Supple with full range of motion. No rigidity or meningismus Chest: Nontender Lungs: Clear to auscultation bilaterally no crackles rales or wheezing Heart: Irregularly irregular rhythm, rate controlled Abdomen: Soft , nontender, nondistended , bowel sounds are present. No guarding no rebound tenderness , No masses or organomegaly Extremities: Normal to inspection, no edema no cyanosis Neurologic: Normal mental status, speech normal, cranial nerves II through XII are intact, motor and sensory are intact, no focal weakness Results Result Diagram: 08/11/17 0637 08/11/17 0637 Results 24 hrs Laboratory Tests Test 08/11/17 06:37 White Blood Count 7.5 Red Blood Count 4.10 L Hemoglobin 12.3 L Hematocrit 37.1 L Mean Corpuscular Volume 90.5 Mean Corpuscular Hemoglobin 30.0 Mean Corpuscular Hemoglobin Concent 33.2 Red Cell Distribution Width 13.2 Platelet Count 219 Mean Platelet Volume 11.4 H Neutrophils % 70.4 Lymphocytes % 17.8 Monocytes % 9.3 Eosinophils % 1.7 Basophils % 0.5 Nucleated Red Blood Cells % 0.0 Neutrophils # 5.3 Lymphocytes # 1.3 Monocytes # 0.7 Eosinophils # 0.1 Basophils # 0.0 Nucleated Red Blood Cells # 0.0 Sodium Level 142 Potassium Level 3.6 Chloride Level 105 Carbon Dioxide Level 30 Anion Gap 11 Blood Urea Nitrogen 17 Creatinine 0.93 Glucose Level 89 Calcium Level 8.6 Phosphorus Level 4.4 Magnesium Level 1.8 Medications Medications Current Medications Lisinopril (Zestril) 10 mg DAILY PO Last administered on 08/11/17 09:12; Admin Dose 10 MG; Start 08/09/17 at 09:00 Ondansetron HCl (Zofran Inj) 4 mg Q6H PRN IV NAUSEA AND/OR VOMITING; Start 08/08/17 at 19:30 Nitroglycerin (Nitroglycerin (Sl Tab) 0.4 Mg) 1 tab Q5M PRN SL CHEST PAIN; Start 08/08/17 at 19:30 Acetaminophen (Tylenol Tab) 650 mg Q6H PRN PO PAIN LEVEL 1-3 OR FEVER; Start 08/08/17 at 19:30 Morphine Sulfate (morphine) 2 mg Q4H PRN IV PAIN LEVEL 7-10; Start 08/08/17 at 19:30 Docusate Sodium (Colace) 100 mg Q12H PRN PO CONSTIPATION; Start 08/08/17 at 19: 30 Magnesium Hydroxide (Milk Of Mag) 30 ml DAILY PRN PO CONSTIPATION; Start at 19:30 Famotidine (Pepcid) 20 mg Q12 PO Last administered on 08/11/17 09:12; Admin Dose 20 MG; Start 08/08/17 at 21:00 Metoprolol Tartrate (Lopressor) 5 mg Q5M PRN IV DESIRED VENTRICULAR RATE Last administered on 08/10/17 01:03; Admin Dose 5 MG; Start 08/08/17 at 19:30 Digoxin (Digoxin) 0.125 mg DAILY@13 PO Last administered on 08/11/17 13:30; Admin Dose 0.125 MG; Start 08/09/17 at 13:00 Amlodipine Besylate (Norvasc) 10 mg DAILY PO Last administered on 08/11/17 09: 12; Admin Dose 10 MG; Start 08/09/17 at 11:30 Metoprolol Tartrate (Lopressor) 25 mg BID PO Last administered on 08/11/17 09: 12; Admin Dose 25 MG; Start 08/10/17 at 21:00 Enoxaparin Sodium (Lovenox) 95 mg Q12 SC ; Start 08/11/17 at 21:00 Ketoconazole (Nizoral Cr) 1 applic BID TOP Last administered on 08/11/17 13:30 ; Admin Dose 1 APPLIC; Start 08/11/17 at 11:30 VIANCA LEWIS Aug 11, 2017 15:01
[2017-08-11] MEDS ORDERED: APIXABAN 5 MG TABLET PO SCH (21:00)
[2017-08-12] VITALS (8 sets, daily range): BP systolic 140–155; BP diastolic 74–80; PULSE 63–72; RESP 16–19
[2017-08-12] MEDS ORDERED: LISINOPRIL 20 MG TAB PO SCH (09:00)
[2017-08-12] MEDS: ENOXAPARIN 100 MG/ML SYG SC SCH (09:27)
[2017-08-12] MEDS: FAMOTIDINE 20 MG TAB PO SCH (09:29)
[2017-08-12] MEDS: KETOCONAZOLE 2% 15 GM CR TOP SCH (09:29)
[2017-08-12] MEDS: METOPROLOL 25 MG TAB PO SCH (09:31)
[2017-08-12] MEDS: AMLODIPINE 10 MG TAB PO SCH (09:31)
--- NOTE | 2017-08-12 11:46 | PDOCDIS ---
Discharge Instructions CONDITION Patient Condition: Stable FOLLOW UP/APPOINTMENTS Follow-up Plan 1. Please follow up with your primary care provider as soon as possible 2. Take only new medications, discard old medications 3. If you see dark or bloody bowel movements or bloody urine, please stop xarelto and follow up with your doctor as soon as possible. VIANCA LEWIS Aug 12, 2017 11:46
[2017-08-12] MEDS ORDERED: AMLO-147 PO (11:49)
[2017-08-12] MEDS ORDERED: DIGO125T PO (11:49)
[2017-08-12] MEDS ORDERED: LISI20TA11 PO (11:49)
[2017-08-12] MEDS ORDERED: RIVA20TA PO (11:49)
[2017-08-12] MEDS ORDERED: METO-448 PO (11:49)
[2017-08-12] MEDS ORDERED: KET2CR15 TOP (11:49)
[2017-08-12] MEDS: DIGOXIN 0.125 MG TAB PO SCH (13:50)
--- NOTE | 2017-08-12 14:05 | DS ---
Date/Time of Note Date/Time of Note DATE: 08/12/17 TIME: 14:04 Discharge Summary Admission/Discharge Info Admit Date/Time Aug 08, 2017 at 18:27 Discharge Date/Time Patient Condition: Stable Hx of Present Illness cc: anxiety, lightheadedness This is a 62-year-old male with a past medical history of hypertension, hyperlipidemia, paroxysmal atrial fibrillation on metoprolol who is presenting with anxiety, lightheadedness, heart palpitations, intermittent left-sided chest pains radiating into the left arm and carotids, nausea with nonbilious nonbloody vomiting that began last night. It is nonexertional. It does not radiate to the back. The patient's symptoms persisted this morning and into the afternoon, so he called an ambulance. The patient was tachycardic with an irregular irregular rhythm. He endorsed chest pain to the paramedics, and he was given 162 mg of aspirin with a nitro spray that resolved his chest pain. The patient still feels mildly nauseated, but he does not feel like he is about to vomit. He also still feels the heart palpitations. Note, the patient reportedly ran out of his metoprolol 2-3 days ago and has not been taking it since then. The patient denies feeling sick recently. The patient denies fever or chills. The patient has had no headache or vision changes. The patient does not endorse back pain. The patient has had no shortness of breath or trouble breathing. He denies a cough. The patient denies abdominal pain or changes to bowel movements or urination. The patient has had no focal deficits. The patient has had no weakness or numbness or tingling to the face or extremities. allergies NKDA Medications: See MAR Hospital Course Patient is a 62-year-old male who originally presented for chest pain and atrial fibrillation with RVR. Patient was evaluated by cardiology and stress test was performed, not finding any acute issues of ischemia. Patient's RVR did convert back to sinus rhythm after cardiology adjusted medications and patient was stabilized. Patient was started on anticoagulation and Xarelto was delivered to patient at bedside for discharge. 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 Patient understands and will follow up with his primary care provider as soon as possible. Discharge diagnosis Paroxysmal A. fib, converted back to normal sinus Hypertension Dyslipidemia Chest pain, ruled out nonischemic Home Meds Active Scripts Ketoconazole* (Ketoconazole* 2% Cream (15gm)) 1 Applic Cr, 1 APPLIC TOP BID for 30 Days, #45 GM apply to feet twice daily Prov:VIANCA LEWIS 08/12/17 Metoprolol Tartrate* (Lopressor*) 25 Mg Tab, 25 MG PO BID for 30 Days, #60 TAB 1 Refill Prov:VIANCA LEWIS 08/12/17 Lisinopril* (Lisinopril*) 20 Mg Tablet, 20 MG PO DAILY for 30 Days, #30 TAB 1 Refill Prov:VIANCA LEWIS 08/12/17 Amlodipine Besylate* (Amlodipine Besylate*) 10 Mg Tablet, 10 MG PO DAILY for 30 Days, #30 TAB 1 Refill Prov:VIANCA LEWIS 08/12/17 Digoxin* (Digitek*) 125 Mcg Tablet, 0.125 MG PO DAILY@13 for 30 Days, #30 TAB 1 Refill Prov:VIANCA LEWIS 08/12/17 Rivaroxaban* (Xarelto*) 20 Mg Tablet, 20 MG PO WITH DINNER for 30 Days, TAB Prov:VIANCA LEWIS 08/12/17 Discontinued Reported Medications Lisinopril* (Lisinopril*) 10 Mg Tablet, 10 MG PO DAILY, #30 TAB 08/08/17 Metoprolol Succinate* (Toprol XL*) 50 Mg Tab.er.24h, 50 MG PO DAILY, #30 TAB 08/08/17 Follow-up Plan 1. Please follow up with your primary care provider as soon as possible 2. Take only new medications, discard old medications 3. If you see dark or bloody bowel movements or bloody urine, please stop xarelto and follow up with your doctor as soon as possible. Primary Care Provider Care Physician No Primary Time spent on discharge: > 30 minutes Pending Labs Laboratory Tests Test 08/12/17 05:47 White Blood Count 7.110^3/ul (4.8-10.8) Red Blood Count 4.3210^6/ul (4.70-6.10) Hemoglobin 12.5g/dl (14.0-18.0) Hematocrit 38.7% (42.0-52.0) Mean Corpuscular Volume 89.6fl (82.0-101.0) Mean Corpuscular Hemoglobin 28.9pg (29.0-33.0) Mean Corpuscular Hemoglobin Concent 32.3g/dl (32.0-37.0) Red Cell Distribution Width 13.2% (11.5-14.5) Platelet Count 95869^3/UL (140-415) Mean Platelet Volume 11.4fl (7.4-10.4) Neutrophils % 61.7% (39.0-77.0) Lymphocytes % 25.4% (15.0-51.0) Monocytes % 10.3% (0.0-11.0) Eosinophils % 1.8% (0.0-7.0) Basophils % 0.4% (0.0-2.0) Nucleated Red Blood Cells % 0.0/100WBC (0.0-0.0) Neutrophils # 4.410^3/ul (1.6-7.5) Lymphocytes # 1.810^3/ul (0.8-2.9) Monocytes # 0.710^3/ul (0.3-0.9) Eosinophils # 0.110^3/ul (0.0-0.5) Basophils # 0.010^3/ul (0.0-0.1) Nucleated Red Blood Cells # 0.010^3/ul (0.0-0.0) Sodium Level 142mmol/L (135-144) Potassium Level 4.0mmol/L (3.5-5.1) Chloride Level 106mmol/L (97-110) Carbon Dioxide Level 30mmol/L (21-31) Anion Gap 10 (8-16) Blood Urea Nitrogen 15mg/dl (7-20) Creatinine 1.00mg/dl (0.61-1.24) Glucose Level 92mg/dl (70-220) Calcium Level 8.9mg/dl (8.4-10.2) Phosphorus Level 4.0mg/dl (2.5-4.9) Magnesium Level 1.9mg/dl (1.7-2.5) VIANCA LEWIS Aug 12, 2017 14:05
[2017-08-12] MEDS ORDERED: RIVAROXABAN 20 MG TABLET PO SCH (18:05)
== END 2017-08-12 15:50 | disposition home or self-care (01) | DRG 310 ==
LOC: E/R 16:23 → MS4 18:27
PROVIDERS: ADMIT Internal Medicine; ATTEND Internal Medicine
PROC: C22G1ZZ Tomographic (Tomo) Nuclear Medicine Imaging of Myocardium using Technetium 99m (Tc-99m) (ICD-10-PCS; principal; 2017-08-09)
PROC: 4A02XM4 Measurement of Cardiac Total Activity, External Approach (ICD-10-PCS; 2017-08-09)
PROC: 3E033HZ Introduction of Radioactive Substance into Peripheral Vein, Percutaneous Approach (ICD-10-PCS; 2017-08-09)
DX: I48.0 Paroxysmal atrial fibrillation (principal); I10 Essential (primary) hypertension; E78.5 Hyperlipidemia, unspecified; R07.9 Chest pain, unspecified; E11.9 Type 2 diabetes mellitus without complications; F41.9 Anxiety disorder, unspecified
CPT/HCPCS: 36415; 71010; 78452; 80048; 80053; 80061; 82550; 82553; 83036; 83735; 84100; 84443; 84484; 85025; 85610; 90686; 93005; 93017; 93306; 93880; 96374; A9500; A9505; J1650; J2785; J7030